=== PATIENT | female | born 1990 | race Caucasian/White ===

== ENCOUNTER 2021-05-18 13:10 | Inpatient (IN) ==
[2021-05-18] MEDS ORDERED: OXYTOCIN 30 UNITS/500 ML BAG IV PRN (14:36)
[2021-05-18 14:54] LABS: Hematocrit (blood only) 33.7 % (37-47); Hemoglobin 11.2 g/dL (12.0-16.0); Mean Corpuscular Hgb Conc 33.2 g/dL (32-36); Mean Corpuscular Volume 87.3 fL (80-100); Mean Platelet Volume 10.6 fL (7.4-10.4); Platelet Count 236 K/uL (130-400); RDW Coefficient of Variation 16.1 % (11.5-14.5); RDW Standard Deviation 50.9 fL (36.4-46.3); Red Blood Count 3.86 M/uL (4.2-5.4); White Blood Count 9.09 K/uL (4.8-10.8)
[2021-05-18] MEDS ORDERED: DINOPROSTONE 10 MG INSERT PV ONE (15:00)
[2021-05-18] MEDS ORDERED: TERBUTALINE SULFATE 1 MG/ML VIAL SQ ONE (15:02)
--- NOTE | 2021-05-18 15:27 | Progress Note ---
Date of Service May 18, 2021 Assessment & Plan Admission and Anticipated Discharge Date Admission Date: May 18, 2021 Subjective met pt ans spouse induction for postdates Reviewed PNC FHR; CAT1 Ctx; Minimal Bedside sono; Vt VE; ft/post/-3 discussed stevens bulb- pt agrees Results & Data ([facility]) Vital Signs (Past 12 Hours) Vital Signs Temp Pulse Resp BP 05/18/21 13:25 37.1 C 101 H 18 112/77 05/18/21 13:16 101 H 112/77
--- NOTE | 2021-05-18 15:55 | Progress Note ---
Date of Service May 18, 2021 Assessment & Plan Admission and Anticipated Discharge Date Admission Date: May 18, 2021 Subjective Viera bulb placed via cervix w/30cc saline pt tolerated procedure well Results & Data ([facility]) Vital Signs (Past 12 Hours) Vital Signs Temp Pulse Resp BP 05/18/21 13:25 37.1 C 101 H 18 112/77 05/18/21 13:16 101 H 112/77
[2021-05-19] MEDS: LACTATED RINGER'S 1,000 ML IV PRN ×2 (08:51→14:53)
[2021-05-19] MEDS ORDERED: miSOPROStoL 25 MCG TAB PV STA (09:47)
--- NOTE | 2021-05-19 09:50 | Progress Note ---
Date of Service May 19, 2021 Assessment & Plan Admission and Anticipated Discharge Date Admission Date: May 18, 2021 Physical Exam Genitourinary: normal external appearance Manual OB Exam: + cervical dilation 1 cm, + cervical effacement 50% and + station high OB Exam Monitor Tracing: + external FHT monitor used, + external uterine monitor used, + category I and + normal FHT variability Will place Cytotec vaginally to continue to ripen cervix discussed with patient and OK with plan Results & Data ([facility]) Vital Signs (Past 12 Hours) Vital Signs Temp Pulse Resp BP 05/19/21 08:51 95 H 123/68 05/19/21 07:14 36.5 C 78 20 134/62 05/19/21 04:54 36.5 C 83 18 128/73 05/19/21 00:44 37.0 C 81 18 114/59 L
--- NOTE | 2021-05-19 10:08 | Progress Note ---
Date of Service May 19, 2021 Assessment & Plan Admission and Anticipated Discharge Date Admission Date: May 18, 2021 Physical Exam Genitourinary: Manual OB Exam: + cervical dilation 1 cm, + cervical effacement 50% and + station high OB Exam Monitor Tracing: + external FHT monitor used, + external uterine monitor used, + category I and + normal FHT variability Cytotec 25 mcg placed vaginally Results & Data ([facility]) Vital Signs (Past 12 Hours) Vital Signs Temp Pulse Resp BP 05/19/21 08:51 95 H 123/68 05/19/21 07:14 36.5 C 78 20 134/62 05/19/21 04:54 36.5 C 83 18 128/73 05/19/21 00:44 37.0 C 81 18 114/59 L
[2021-05-19] MEDS ORDERED: BUPIVACAINE 0.25% 30 ML VIAL ONE (14:28)
[2021-05-19] MEDS ORDERED: SODIUM CHLORIDE 0.9% INJ 10 ML VIAL ONE (14:28)
[2021-05-19] MEDS ORDERED: ePHEDrine sulfate 50 MG/ML AMP ONE (14:28)
[2021-05-19] MEDS ORDERED: fentaNYL citrate 100 MCG/2 ML VIAL ONE (14:28)
[2021-05-19] MEDS ORDERED: fentaNYL 2MCG/ML ROPIVACAINE 1.25MG/ML 100 ML BAG EPI ONE (14:29)
--- NOTE | 2021-05-19 14:43 | Anesthesiology Consultation ---
Date of Service May 19, 2021 Assessment & Plan (1) Encounter for pre-operative examination: Chart Review Chart Review: Acceptable Risk for Labor Epidural History Height/Weight Height: 5 ft 9.5 in Weight: 92.079 kg Allergies Allergy/AdvReac Type Severity Reaction Status Date / Time No Known Allergies Allergy Unverified 06/15/18 07:31 Medications Home Medications Medication Instructions Recorded Confirmed Last Taken PNV cmb#95-ferrous fumarate-FA 1 tab PO DAILY 05/18/21 05/18/21 05/18/21 11:00 [] acyclovir 200 mg PO TID 05/18/21 05/18/21 05/18/21 11:00 Active Medications Generic Name Dose Route Start Last Admin Trade Name Freq PRN Reason Stop Dose Admin Lactated Ringer's 1,000 mls @ 125 mls/hr 05/18/21 14:36 05/19/21 14:00 Lr IV 05/20/21 14:35 999 mls/hr .Q8H PRN Infusion L&D Protocol Protocol Past Medical History Medical History No known health problems Past Surgical History Surgical History [place] teeth removed 2011 Social History Smoking Status: Former smoker Hx Alcohol Use: No Hx Substance Use: No Physical Exam Vital Signs Last Vital Signs Temp 36.6 C 05/19/21 12:02 Pulse 89 05/19/21 14:38 Resp 20 05/19/21 12:02 BP 122/72 05/19/21 14:29 Pulse Ox 99 05/19/21 14:38 Testing Laboratory Results 05/18/21 14:45
--- NOTE | 2021-05-19 14:44 | Anesthesiology Consultation ---
Date of Service May 19, 2021 Assessment & Plan Chart Review Chart Review: Acceptable Risk for Labor Epidural History Height/Weight Height: 5 ft 9.5 in Weight: 92.079 kg Allergies Allergy/AdvReac Type Severity Reaction Status Date / Time No Known Allergies Allergy Unverified 06/15/18 07:31 Medications Home Medications Medication Instructions Recorded Confirmed Last Taken PNV cmb#95-ferrous fumarate-FA 1 tab PO DAILY 05/18/21 05/18/21 05/18/21 11:00 [] acyclovir 200 mg PO TID 05/18/21 05/18/21 05/18/21 11:00 Active Medications Generic Name Dose Route Start Last Admin Trade Name Freq PRN Reason Stop Dose Admin Lactated Ringer's 1,000 mls @ 125 mls/hr 05/18/21 14:36 05/19/21 14:00 Lr IV 05/20/21 14:35 999 mls/hr .Q8H PRN Infusion L&D Protocol Protocol Past Medical History Medical History No known health problems Past Surgical History Surgical History [place] teeth removed 2011 Social History Smoking Status: Former smoker Hx Alcohol Use: No Hx Substance Use: No Physical Exam Vital Signs Last Vital Signs Temp 36.6 C 05/19/21 12:02 Pulse 89 05/19/21 14:38 Resp 20 05/19/21 12:02 BP 122/72 05/19/21 14:29 Pulse Ox 99 05/19/21 14:38 Testing Laboratory Results 05/18/21 14:45
[2021-05-19] MEDS ORDERED: fentaNYL 2MCG/ML ROPIVACAINE 1.25MG/ML 100 ML BAG EPI PRN (15:04)
[2021-05-19] MEDS ORDERED: ONDANSETRON INJ 2 MG/ML 2 ML VIAL IV PRN (15:04)
[2021-05-19] MEDS ORDERED: ePHEDrine sulfate 50 MG/ML AMP IV PRN (15:04)
[2021-05-19] MEDS ORDERED: NALOXONE HCL 0.4 MG/1 ML VIAL/CARP IV PRN (15:04)
[2021-05-19] MEDS ORDERED: NALOXONE HCL 1 MG in SODIUM CHLORIDE 0.9% 1000ML 1,000 ML IV PRN (15:04)
--- NOTE | 2021-05-19 15:17 | Progress Note ---
Date of Service May 19, 2021 Assessment & Plan Admission and Anticipated Discharge Date Admission Date: May 18, 2021 Physical Exam Genitourinary: Manual OB Exam: + cervical dilation 5 cm, + cervical effacement 60%, + station -2 and + amniotic fluid clear OB Exam Monitor Tracing: + external FHT monitor used, + external uterine monitor used, + category I and + normal FHT variability AROM with Amni-hook clear fluid Results & Data ([facility]) Vital Signs (Past 12 Hours) Vital Signs Temp Pulse Resp BP Pulse Ox 05/19/21 15:14 76 96 05/19/21 15:13 77 103/58 L 05/19/21 15:10 80 94 05/19/21 15:08 78 97 05/19/21 15:07 74 109/62 05/19/21 15:05 71 115/63 94 05/19/21 15:03 72 115/66 95 05/19/21 15:01 65 114/60 05/19/21 15:00 67 121/64 05/19/21 14:58 79 100 05/19/21 14:53 109 H 77 L 05/19/21 14:52 93 H 88 L 05/19/21 14:48 90 100 05/19/21 14:43 90 97 05/19/21 14:38 89 99 05/19/21 14:33 83 98 05/19/21 14:29 83 122/72 05/19/21 14:28 83 99 05/19/21 13:22 86 123/74 05/19/21 12:04 75 115/56 L 05/19/21 12:02 36.6 C 20 05/19/21 08:51 95 H 123/68 05/19/21 07:14 36.5 C 78 20 134/62 05/19/21 04:54 36.5 C 83 18 128/73
[2021-05-19] MEDS ORDERED: OXYTOCIN 30 UNITS/500 ML BAG IV PRN ×2 (16:26→21:00)
--- NOTE | 2021-05-19 17:04 | Progress Note ---
Date of Service May 19, 2021 Assessment & Plan Admission and Anticipated Discharge Date Admission Date: May 18, 2021 Physical Exam Genitourinary: Manual OB Exam: + cervical dilation 6 cm, + cervical effacement 90%, + station -1 and + amniotic fluid clear OB Exam Monitor Tracing: + external FHT monitor used, + external uterine monitor used, + category I and + normal FHT variability Results & Data ([facility]) Vital Signs (Past 12 Hours) Vital Signs Temp Pulse Resp BP Pulse Ox 05/19/21 16:59 86 97 05/19/21 16:54 82 97 05/19/21 16:49 85 98 05/19/21 16:48 64 94 05/19/21 16:47 72 106/59 L 05/19/21 16:44 64 95 05/19/21 16:41 62 94 05/19/21 16:39 73 97 05/19/21 16:34 78 97 05/19/21 16:33 70 108/58 L 05/19/21 16:29 66 96 05/19/21 16:24 89 97 05/19/21 16:19 75 105/52 L 96 05/19/21 16:14 77 95 05/19/21 16:09 75 96 05/19/21 16:04 76 95 05/19/21 16:02 75 112/59 L 05/19/21 16:01 74 94 05/19/21 15:59 83 96 05/19/21 15:56 72 94 05/19/21 15:54 78 96 05/19/21 15:49 88 96 05/19/21 15:47 89 100/58 L 05/19/21 15:44 69 97 05/19/21 15:39 72 93 05/19/21 15:34 72 96 05/19/21 15:29 79 95 05/19/21 15:28 85 101/58 L 05/19/21 15:26 72 94 05/19/21 15:25 77 103/56 L 05/19/21 15:24 85 98 05/19/21 15:23 78 89/51 L 05/19/21 15:19 72 98 05/19/21 15:18 78 103/55 L 93 05/19/21 15:14 76 96 05/19/21 15:13 77 103/58 L 05/19/21 15:10 80 94 05/19/21 15:08 78 97 05/19/21 15:07 74 109/62 05/19/21 15:05 71 115/63 94 05/19/21 15:03 72 115/66 95 05/19/21 15:01 65 114/60 05/19/21 15:00 67 121/64 05/19/21 14:58 79 100 05/19/21 14:53 109 H 77 L 05/19/21 14:52 93 H 88 L 05/19/21 14:48 90 100 05/19/21 14:43 90 97 05/19/21 14:38 89 99 05/19/21 14:33 83 98 05/19/21 14:29 83 122/72 05/19/21 14:28 83 99 05/19/21 13:22 86 123/74 05/19/21 12:04 75 115/56 L 05/19/21 12:02 36.6 C 20 05/19/21 08:51 95 H 123/68 05/19/21 07:14 36.5 C 78 20 134/62
--- NOTE | 2021-05-19 20:43 | Delivery Summary ---
Vaginal Delivery Summary Date of Service May 19, 2021 Vaginal Delivery Summary Delivery Note live female MINDY over intact perineum with Apgars 9/9 weight pending. Cord blood obtained followed by spontaneous delivery of intact perineum. First degree tear repaired with 3/0 Vicryl suture. EBL 150 ml. Final sponge and instrument count are correct. Mom and baby stable.
[2021-05-19] MEDS ORDERED: BENZOCAINE 20% AER SPR 82.5 GM CAN EXT PRN (21:00)
[2021-05-19] MEDS ORDERED: bisacodyL 10 MG SUPP PR PRN (21:00)
[2021-05-19] MEDS ORDERED: HYDROCORTISONE ACETATE 25 MG SUPP PR PRN (21:00)
[2021-05-19] MEDS ORDERED: SUPERCREAM 0.870% 15 GM JAR EXT PRN (21:00)
[2021-05-19] MEDS ORDERED: DIPHTHERIA/TETANUS/PERTUSSIS 0.5 ML SYR/VIAL IM ONE (21:00)
[2021-05-19] MEDS: DOCUSATE SODIUM 100 MG CAP PO SCH (21:24)
[2021-05-19] MEDS: IBUPROFEN 600 MG TAB PO PRN (23:16)
[2021-05-20] MEDS: IBUPROFEN 600 MG TAB PO PRN ×5 (04:32→23:05)
[2021-05-20 06:07] LABS: Hematocrit (blood only) 33.7 % (37-47); Hemoglobin 10.9 g/dL (12.0-16.0); Mean Corpuscular Hemoglobin 28.5 pg (25-34); Mean Corpuscular Hgb Conc 32.3 g/dL (32-36); Mean Platelet Volume 10.7 fL (7.4-10.4); Platelet Count 218 K/uL (130-400); RDW Coefficient of Variation 16.3 % (11.5-14.5); RDW Standard Deviation 52.5 fL (36.4-46.3); Red Blood Count 3.83 M/uL (4.2-5.4); White Blood Count 19.98 K/uL (4.8-10.8)
[2021-05-20] MEDS: ACETAMINOPHEN 325 MG TAB PO PRN ×3 (07:44→15:55)
[2021-05-20] MEDS ORDERED: PRENATAL VITAMIN 1 TAB PO SCH (08:00)
--- NOTE | 2021-05-20 08:10 | Obstetrical Progress Note ---
Date of Service May 20, 2021 Subjective Ambulation: ambulating normally Voiding: no voiding problems Passing Gas:: Yes Diet Tolerance:: regular diet Lochia:: Small Feeding Type:: breast feeding Physical Exam Constitutional WD/WN, vitals as above comfortable fundus firm adrianne edema neg Sandor's tent d/c in AM Results & Data ([facility]) Vital Signs (Past 12 Hours) Vital Signs Temp Pulse Pulse Resp BP BP Pulse Ox 05/20/21 04:00 36.7 C 74 16 98/65 L 97 05/19/21 23:00 36.7 C 80 16 119/76 98 05/19/21 22:32 81 113/70 05/19/21 22:03 103 H 108/69 05/19/21 21:32 87 114/65 05/19/21 21:17 93 H 123/75 05/19/21 21:02 85 136/80 05/19/21 20:47 109 H 102/61 05/19/21 20:44 90 100 05/19/21 20:39 89 100 05/19/21 20:34 105 H 98 05/19/21 20:32 103 H 105/57 L 05/19/21 20:29 101 H 99 05/19/21 20:24 103 H 97 05/19/21 20:19 116 H 100 05/19/21 20:17 107 H 122/79 05/19/21 20:16 117 H 90 05/19/21 20:14 129 H 100 05/19/21 20:10 123 H 92 05/19/21 20:09 121 H 100
[2021-05-20] MEDS: DOCUSATE SODIUM 100 MG CAP PO SCH ×2 (09:03→19:56)
[2021-05-20] MEDS: PRENATAL VITAMIN 1 TAB PO SCH (09:03)
[2021-05-20] MEDS: FERROUS SULFATE 325 MG TAB PO SCH (09:03)
--- NOTE | 2021-05-20 10:36 | Anesthesia Procedure Note ---
Date of Service May 20, 2021 Anesthesia Post Epidural Note Vital Signs Vital Signs: Temp Pulse Resp BP Pulse Ox 36.7 C 78 18 122/81 97 05/20/21 08:01 05/20/21 08:01 05/20/21 08:01 05/20/21 08:01 05/20/21 08:01 Pain Intensity Bilateral Abdomen: Pain Intensity: 3 Notes Mental Status: alert / awake / arousable and participated in evaluation Nausea / Vomiting: adequately controlled Pain: adequately controlled Airway Patency, RR, SpO2: stable & adequate BP & HR: stable & adequate Hydration State: stable & adequate Neuraxial Anesthesia: was administered and sensory block is resolving Anesthetic Complications: no major complications apparent Epidural: Removed without complications and With tip intact
[2021-05-20] MEDS ORDERED: bisacodyL 5 MG TABEC PO SCH (20:00)
[2021-05-21] MEDS: IBUPROFEN 600 MG TAB PO PRN ×2 (04:29→07:47)
[2021-05-21 06:07] LABS: Hematocrit (blood only) 32.4 % (37-47); Hemoglobin 10.5 g/dL (12.0-16.0)
[2021-05-21] MEDS: PRENATAL VITAMIN 1 TAB PO SCH (07:47)
[2021-05-21] MEDS: FERROUS SULFATE 325 MG TAB PO SCH (07:47)
[2021-05-21] MEDS: DOCUSATE SODIUM 100 MG CAP PO SCH (07:47)
--- NOTE | 2021-05-21 09:44 | Obstetrical Progress Note ---
Date of Service May 21, 2021 Assessment & Plan Admission and Anticipated Discharge Date Admission Date: May 18, 2021 Subjective Patient is seen and examined. She feels well, no complaints. Ambulating without dizziness Voiding without difficulty Tolerating regular diet with out N&V Bleeding is minimal No fever/ chills/ CP/ SOB/ N&V/ Leg pain Breast feeding without problems Vital Signs Temp Pulse Resp BP BP Pulse Ox 05/21/21 07:33 36.7 C 69 21 108/68 97 05/20/21 23:00 36.7 C 75 16 123/81 97 05/20/21 19:45 36.7 C 84 16 109/73 98 05/20/21 15:45 36.7 C 88 16 108/64 97 05/20/21 12:00 36.5 C 76 16 122/82 97 Lab Results 05/18/21 05/18/21 05/18/21 Range/Units 14:45 Unknown Unknown WBC 9.09 (4.8-10.8) K/uL RBC 3.86 L (4.2-5.4) M/uL Hgb 11.2 L (12.0-16.0) g/dL Hct 33.7 L (37-47) % MCV 87.3 (80-100) fL MCH 29.0 (25-34) pg MCHC 33.2 (32-36) g/dL RDW Std Deviation 50.9 H (36.4-46.3) fL RDW Coeff of Chuck 16.1 H (11.5-14.5) % Plt Count 236 (130-400) K/uL MPV 10.6 H (7.4-10.4) fL COVID-19 Eval Order Covid19 IDNow [facility] SARS-CoV-2, RNA, NAAT NEGATIVE (NEGATIVE) 05/20/21 05/21/21 Range/Units 05:48 05:54 WBC 19.98 H (4.8-10.8) K/uL RBC 3.83 L (4.2-5.4) M/uL Hgb 10.9 L 10.5 L (12.0-16.0) g/dL Hct 33.7 L 32.4 L (37-47) % MCV 88.0 (80-100) fL MCH 28.5 (25-34) pg MCHC 32.3 (32-36) g/dL RDW Std Deviation 52.5 H (36.4-46.3) fL RDW Coeff of Chuck 16.3 H (11.5-14.5) % Plt Count 218 (130-400) K/uL MPV 10.7 H (7.4-10.4) fL COVID-19 Eval Order SARS-CoV-2, RNA, NAAT (NEGATIVE) PE: General: Alert, orientedx3, NAD Abd: soft, NT, fundus firm, below Umbilicus Perineum intact, Lochia rubra minimal Ext; NT, no edema AP: 30 yo s/p , ppd# 2 VSS Afebrile doing well Continue routine care All questions were answered Discussed when to call D/C home , f/u in office Results & Data ([facility]) Vital Signs (Past 12 Hours) Vital Signs Temp Pulse Resp BP BP Pulse Ox 05/21/21 07:33 36.7 C 69 21 108/68 97 05/20/21 23:00 36.7 C 75 16 123/81 97
== END 2021-05-21 11:05 | disposition home or self-care (01) | DRG 807 ==
LOC: 4S1 13:10 → 4S2 05-19 22:45